=== PATIENT | female | born 1965 | race Caucasian/White ===

== ENCOUNTER → 2016-10-03 | Outpatient (CLI) | payer OTHER | END | disposition home or self-care (01) | LOC: MAMMO 09:18 | DX: Z01.419 Encounter for gynecological examination (general) (routine) without abnormal findings (principal); N60.01 Solitary cyst of right breast ==

== ENCOUNTER 2016-12-02 05:31 | Emergency (ER) | payer MEDICAID ==
[~2016-12-02] VITALS: Ht 170.1 cm; Wt 86.2 kg
[2016-12-02 05:38] VITALS: BP 125/65
[2016-12-02] MEDS ORDERED: MEDROL DOSEPAK4 MG PO (05:39)
[2016-12-02] MEDS ORDERED: BENADRYL ALLERG25 M5 PO (05:48)
[2016-12-02] MEDS ORDERED: PREDNISONE50 MG PO (05:48)
== END 2016-12-02 06:11 | disposition home or self-care (01) ==
LOC: ED 05:31
DX: L23.9 Allergic contact dermatitis, unspecified cause (principal); Z88.1 Allergy status to other antibiotic agents

== ENCOUNTER → 2017-02-10 | Outpatient (CLI) | payer OTHER ==
[~2017-02-10] MED LIST: BENADRYL ALLERG25 M5 PO; MEDROL DOSEPAK4 MG PO; PREDNISONE50 MG PO
== END | disposition home or self-care (01) ==
LOC: RAD 11:00
DX: Z13.820 Encounter for screening for osteoporosis (principal); Z78.0 Asymptomatic menopausal state; Z85.3 Personal history of malignant neoplasm of breast; Z90.710 Acquired absence of both cervix and uterus

== ENCOUNTER 2019-06-03 13:03 | Emergency (ER) | payer OTHER ==
[~2019-06-03] VITALS: Ht 167.6 cm; Wt 99.8 kg
[2019-06-03 13:46] VITALS: BP 122/77
== END 2019-06-03 16:00 | disposition home or self-care (01) ==
LOC: ED 13:03
DX: S50.02XA Contusion of left elbow, initial encounter (principal); Z88.1 Allergy status to other antibiotic agents; Z79.899 Other long term (current) drug therapy; Z90.49 Acquired absence of other specified parts of digestive tract; Z90.710 Acquired absence of both cervix and uterus; W01.198A Fall on same level from slipping, tripping and stumbling with subsequent striking against other object, initial encounter; Y93.89 Activity, other specified; Y92.69 Other specified industrial and construction area as the place of occurrence of the external cause; Y99.8 Other external cause status

== ENCOUNTER → 2022-02-16 | Outpatient (CLI) | payer OTHER | END | disposition home or self-care (01) | LOC: RAD 14:12 | PROVIDERS: ATTEND Nurse Practitioner Family | DX: M25.562 Pain in left knee (principal) ==

== ENCOUNTER 2023-05-27 09:29 | Emergency (ER) | payer OTHER ==
[~2023-05-27] VITALS: Ht 170.1 cm; Wt 96.2 kg
[2023-05-27 09:55] VITALS: BP 126/80
[2023-05-27] MEDS ORDERED: CRESTOR5 M1 PO (09:56)
[2023-05-27] MEDS ORDERED: CALCIUM PO (09:57)
[2023-05-27] MEDS ORDERED: METFORMIN HYDR500 MG PO (09:57)
[2023-05-27] MEDS ORDERED: [UNRECOGNIZED DRUG - OTHER] PO (09:57)
[2023-05-27] MEDS ORDERED: VITAMIN E90 MG PO (09:58)
[2023-05-27] MEDS ORDERED: CYCLOBENZAPRINE10 MG PO (10:24)
[2023-05-27] MEDS ORDERED: MELOXICAM15 MG PO (10:24)
== END 2023-05-27 11:03 | disposition home or self-care (01) ==
LOC: ED 09:29
DX: S46.311A Strain of muscle, fascia and tendon of triceps, right arm, initial encounter (principal); Z88.1 Allergy status to other antibiotic agents; Z79.899 Other long term (current) drug therapy; Z90.711 Acquired absence of uterus with remaining cervical stump; Z90.49 Acquired absence of other specified parts of digestive tract; X58.XXXA Exposure to other specified factors, initial encounter; Y93.89 Activity, other specified; Y92.89 Other specified places as the place of occurrence of the external cause; Y99.8 Other external cause status